=== PATIENT | male | born 1955 | race Caucasian/White ===

== ENCOUNTER → 2023-01-18 | Outpatient (CLI) | payer BC ==
[~2023-01-18] MED LIST: AMLODIPINE BESYL5 MG PO; ASPIRIN81 MG PO; IOPAMIDOL 370 MG/ML 100 ML INFUS..BTL INJ ONE; METOPROLOL SUCC50 MG PO
[2023-01-18 14:32] LABS: CREATININE, SERUM 0.75 mg/dL (0.72-1.25)
== END ==
LOC: CT 13:25
PROVIDERS: ATTEND Internal Medicine Cardiovascular Disease
DX: I73.9 Peripheral vascular disease, unspecified (principal)
CPT/HCPCS: 36415; 75635; 82565; 84520; Q9967